=== PATIENT | male | born 2000 | race Caucasian/White ===

== ENCOUNTER 2024-05-17 17:57 | Emergency (ER) | payer SELFPAY ==
--- NOTE | 2024-05-17 17:58 | ED.GENMED ---
History of Present Illness
General
Chief Complaint: Change in Mental Status
Time Seen by Provider: 05/17/24 17:57
History of Present Illness
History of Present Illness:
TIME OF INITIAL ENCOUNTER: 6 PM
HPI: I spoke to EMS for history. They spoke to police. The patient was found to be sleeping in a car that was [place] a [place]. There is no sign of trauma to the car. He was checked on the later and police got him out of the car and due to
the agitation wanted him to be evaluated medically. EMS brought him here for further evaluation. The patient had admits to using some sort of 'weed drink'. He denies any other drug use. He has a alcohol breathalyzer attack to the starter for his
car and he was able to start his car today
EXAM:
GENERAL: Well appearing in no distress, mydriasis noted, appears to be under the effects of drug use
HEENT: Moist oral mucosa
CARDIOVASCULAR: No murmurs, normal heart rate, regular rhythm, No chest wall tenderness
PULMONARY: No respiratory distress, breath sounds are clear and equal
ABDOMEN: Soft with no peritoneal signs, no tenderness
NEUROLOGIC: Excellent strength all extremities, no coordination deficits with normal [id number] testing, slight slurred speech
PSYCHIATRIC: Appears slightly agitated but is cooperative
EXTREMITIES: Nontender, no edema, moves all extremities equally
SKIN: No rash, no lesions
NUMBER AND COMPLEXITY OF PROBLEMS ADDRESSED AT THE ENCOUNTER
� Chronic conditions affecting care: No significant past medical history
� Acute Exacerbation and/or Progression of Chronic Illness: This is an acute problem
� Differential Diagnosis includes: Drug use, alcohol use
AMOUNT AND/OR COMPLEXITY OF DATA TO BE REVIEWED AND ANALYZED
� I performed an independent evaluation of and my interpretation is:
EKG:
CT:
X-rays:
Laboratory Studies: White count and hemoglobin are normal, MCV is 96, alcohol undetected, chemistries relatively unremarkable but BUN is elevated, UDS positive for cocaine and marijuana
Other:
� Review of other/old records: No old records available for review in [facility]
� Clinical information was obtained by an independent historian: Spoke to EMS upon arrival; I spoke to parents prior to discharge
� Prescriptions/Medications Considered but not given:
� Further testing considered but not performed:
RISK OF COMPLICATIONS AND/OR MORBIDITY OR MORTALITY OF PATIENT MANAGEMENT
� Social determinants of health affecting care: Lives at home, admits to substance use over the weekend
� Discussion with other providers:
� Escalation of care including admission/observation vs risk of discharge considered: No clear indication for admission to the hospital.
ANY OTHER UPDATES:
9:45 PM: I reassessed patient. Overall the patient has improved spontaneously. I spoke to the parents at bedside. He apparently has been to drug and alcohol facilities 5-6 times. They already have resources at home. His UDS is positive for both
cocaine and marijuana. Vital signs and blood work is reassuring.
Phy Exam
Physical Exam
Physical Exam:
See HPI
Course
Orders/Labs/Results
Orders:
Orders
05/17/24 17:58
0.9% Sodium Chloride 1000 ml [Nss] 1,000 ml IV BOLUS
05/17/24 18:13
Alcohol Urgent
Complete Blood Count/With Diff Urgent
Comprehensive Metabolic Panel Urgent
05/17/24 19:57
Fentanyl, Urine Urgent
Urine Drug Abuse Screen Urgent
Date Specimen was Collected: 05/17/24
Time Specimen was Collected: 18:47
Abnormal Lab Results
05/17/24 05/17/24
18:13 19:57
RBC 3.88 L 10^6/uL
(4.70-6.10)
Hct 37.4 L %
(39.0-52.0)
MCV 96.4 H fL
(80.0-94.0)
MCH 34.3 H pg
(27.0-31.0)
Absolute Monos (auto) 1.4 H 10^3/uL
(0.1-0.6)
Monocytes % 15.6 H %
(1.7-9.3)
BUN 27 H mg/dl
(9-20)
Urine Cocaine Screen Positive H
(Negative)
U Marijuana (THC) Screen Positive H
(Negative)
05/17/24 18:13
05/17/24 18:13
Vital Signs
Initial and Last Documented VS:
Initial Vital Signs
Temp Pulse Resp BP Pulse Ox
36.8 C 84 18 104/73 99
05/17/24 18:00 05/17/24 18:00 05/17/24 18:00 05/17/24 18:00 05/17/24 18:00
Last Documented Vital Signs
Temp Pulse Resp BP Pulse Ox
36.8 C 68 18 113/60 99
05/17/24 18:00 05/17/24 20:56 05/17/24 20:56 05/17/24 20:56 05/17/24 20:56
*Critical Care Note
Total Time (30-74mins, 75-104mins- exclusive of procedures): Not Applicable
ED Attending Note
-
Portions of this chart may have been created with voice recognition software.� Occasional wrong word or��sound alike� substitutions may have occurred due to the inherent limitations of voice recognition software.
Discharge Plan
Departure
Referrals:
NONE,* [Family Provider] -
Interventions
Interventions:
*Risk Screen - Suicide Last Done: 05/17/24 18:00
*General Assessment Last Done: 05/17/24 18:00
*Neglect/Abuse Screening Last Done: 05/17/24 18:00
ED- Neurological Assessment Last Done: 05/17/24 18:43
ED Swallowing Screen Last Done: 05/17/24 18:43
Discharge Date and Time
Print Language: CAMEROONIAN
[2024-05-17 18:00] VITALS: BP 104/73
[2024-05-17] MEDS: NSS 1000 IV (18:11)
[2024-05-17 18:23] LABS: % Basophils 0.6 % (0-2); % Eosinophils 3.3 % (0-6); % Immature Granulocytes 0.2 % (0-0.5); % Lymphocytes 22.3 % (20.5-51.1); % Monocytes 15.6 % (1.7-9.3); Absolute Basophils 0.1 10^3/uL (0-0.2); Absolute Eosinophils 0.3 10^3/uL (0-0.7); Absolute Monocytes 1.4 10^3/uL (0.1-0.6); Absolute Neutrophils 5.1 10^3/uL (1.4-6.5); Hematocrit 37.4 % (39.0-52.0); Hemoglobin 13.3 g/dL (13.0-18.0); Mean Corp Hgb Conc. 35.6 g/dL (33.0-37.0); Mean Corpuscular Hgb 34.3 pg (27.0-31.0); Mean Corpuscular Volume 96.4 fL (80.0-94.0); Mean Platelet Volume 9.4 fL (7.4-10.4); Nucleated Red Blood Cells % 0 % (-); Platelet Count 348 10^3/uL (130-400); Red Blood Cell Count 3.88 10^6/uL (4.70-6.10); Red Cell Dist. Width 14.4 % (11.5-14.5); White Blood Cell Count 8.7 10^3/uL (4.8-10.8)
[2024-05-17 18:32] LABS: ALT (SGPT) 18 U/L (0-50); AST (SGOT) 25 U/L (17-59); Albumin 4.7 g/dl (3.5-5.0); Alkaline Phosphatase 97 U/L (38-126); Blood Urea Nitrogen 27 mg/dl (9-20); Calcium 9.2 mg/dl (8.4-10.2); Carbon Dioxide 26 mmol/L (22-30); Chloride 100 mmol/L (98-107); Glucose 86 mg/dl (70-99); Potassium 4.5 mmol/L (3.5-5.1); Sodium 138 mmol/L (135-145); Total Bilirubin 1.2 mg/dl (0.2-1.3); Total Protein 7.1 g/dl (6.3-8.2); eGFR > 60.00
[2024-05-17 18:33] LABS: Alcohol None Detected
[2024-05-17 20:16] LABS: Amphetamines Negative (Negative); Barbiturates Negative (Negative); Benzodiazepines Negative (Negative); Buprenorphine Negative (Negative); Cocaine Positive (Negative); Marijuana Positive (Negative); Methadone Negative (Negative); Methamphetamines Negative (Negative); Opiates Negative (Negative); Phencyclidine Negative (Negative); Tricyclic Antidepressants Negative (Negative)
[2024-05-17 20:35] LABS: Fentanyl, Urine Negative (Negative)
[2024-05-17 20:56] VITALS: BP 113/60
== END 2024-05-17 22:15 | disposition home or self-care (01) ==
LOC: EMR 17:57
PROVIDERS: EMERGENCY PHYSICIAN Emergency Medicine
DX: R41.82 Altered mental status, unspecified (principal); F19.90 Other psychoactive substance use, unspecified, uncomplicated
CPT/HCPCS: 96360; 99284; 80053; 80306; 80307; 82077; 85025